=== PATIENT | female | born 1970 | race Caucasian/White ===

== ENCOUNTER 2017-03-19 18:48 | Emergency (ER) | payer BC ==
--- NOTE | ~2017-03-19 | CR72 ---
[facility] A Service of [facility] RADIOLOGY TEXT RESULTS PATIENT: DANIEL MARKS LOCATION: [facility] : 74 UNIT #: [id number] AGE: [address]: Iglesia Carrington MD SEX: F ORDER DR: [id number] [facility] [address] [place], [place] [address] [id number] E MR#: [id number] Acc #: [id number] NAME: DANIEL MARKS : 1970 SEX: F STUDY DATE/TIME: 03/19/2017 20:58 UNIT: [facility] ROOM: STUDY DESCRIPTION: CR Chest Single View Portable Attending Physician: Iglesia Carrington M.D. Ordering Physician: Iglesia Carrington M.D. Primary Care Physician: Bernadette Marks M.D. MEDICAL IMAGING REPORT This report is preliminary unless electronic signature is present EXAM Portable chest, 03/19/2017. HISTORY Dyspnea, shortness breath, cough and chest congestion for 4 weeks, bronchitis. Smoking history for 13 years. FINDINGS There is no prior chest radiograph for comparison. The heart is normal in size. There is ill-defined infiltrate at the lateral right lung base suspicious for pneumonia. Lungs are otherwise clear. There are no pleural effusions. IMPRESSION Ill-defined infiltrate lateral right lung base suspicious for pneumonia. Dictated by... Lam Bolivar M.D. THIS IS AN ELECTRONICALLY VERIFIED REPORT Lam Bolivar M.D. at 03/20/2017 2:20 PM VIVINAA/laurent TD: 03/20/2017 01:10 JOB #: [id number] MEDICAL IMAGING REPORT Page 1 of 1 COPY
--- NOTE | ~2017-03-19 | EKG ---
PATIENT: DANIEL MARKS UNIT #: [id number] Ventricular Rate: 80 BPM Atrial Rate: 80 BPM P-R Interval: 146 ms QRS Duration: 78 ms Q-T Interval: 376 ms QTC Calculation(Bezet): 433 ms P Hope: 17 degrees Calculated R Hope: 5 degrees Calculated T Hope: 19 degrees Diagnosis Line: Normal sinus rhythm Diagnosis Line: Minimal voltage criteria for LVH, may be normal Diagnosis Line: variant Diagnosis Line: Borderline ECG Diagnosis Line: No previous ECGs available Diagnosis Line: Confirmed by SANDHYA MARI MD ([id number]) on Diagnosis Line: 03/21/2017 10:31:53 AM INTERPRETING MD: JACEY CARPENTER
[~2017-03-19 18:48] MED LIST: FLEXERIL PO; VICODIN 5/500 T1 TAB PO
== END 2017-03-19 21:35 | disposition home or self-care (01) ==
LOC: CED 18:48
DX: R05 Cough (principal); R06.02 Shortness of breath; E78.5 Hyperlipidemia, unspecified
CPT/HCPCS: 71010; 93005; 94640; 99285